=== PATIENT | male | born 1975 | race Caucasian/White ===

== ENCOUNTER → 2021-08-13 12:47 | Outpatient (BNVA) | payer OTHER, SELFPAY | PROVIDERS: PCP Internal Medicine; Visit Provider Nurse Practitioner Family ==

== ENCOUNTER → 2022-09-13 09:11 | Outpatient (BNVA) | payer OTHER, SELFPAY | PROVIDERS: PCP Internal Medicine; Visit Provider Nurse Practitioner Family | DX: Z13.89 Encounter for screening for other disorder (principal) ==

== ENCOUNTER 2023-03-15 08:04 | Outpatient (AMB) | payer OTHER, SELFPAY ==
[2023-03-15 08:07] VITALS: BP 126/88; PULSE 69; O2SAT 97; BMI 32.8
--- NOTE | 2023-03-15 08:07 | A.OFFVIS_ITS ---
Intake Vital Signs 03/15/23 08:07 Height 5 ft 11 in Weight 235 lb 8 oz BMI 32.8 BP 126/88 Blood Pressure Location Lt brachial Position Sitting Pulse 69 Pulse Source Pulse Oximeter Pulse Oximetry (%) 97 Oxygen Delivery Method Room Air Intake Visit Reasons: 6m follow up - LVM Intake Note: Pt presents as a 6 month f/u. PT states slow tremor increase on left side but everything else seems to be doing pretty well. Public Address Announcer Required: No Allergies acetaminophen [From Percocet] Allergy (Mild, Verified 03/15/23 08:11) unknown oxycodone [From Percocet] Allergy (Mild, Verified 03/15/23 08:11) unknown Seasonal Allergies Allergy (Unknown, Verified 03/15/23 08:11) Sneezing Medication List - Last Reconciled 03/15/23 by ELIZABETH Johns carbidopa-levodopa 25-100 mg 1.5 tabs PO TID 90 days cetirizine-pseudoephedrine 5-120 mg ER (Zyrtec-D) 1 tab PO DAILY PRN clonazepam 0.5 mg PO DAILY PRN desonide 0.05% appl topical DAILY gabapentin 300 mg PO DAILY ketoconazole 2% 1 appl topical levothyroxine 137 mcg PO DAILY meloxicam 15 mg PO DAILY HPI HPI Comments History of Present Illness Details 47-yr-old male presents for f/u visit. Pt denies any significant interval medical history changes. Pt's current PD medication regimen: Carbidopa-Levodopa 25-100mg 4-5 tabs per day over 3 doses. Do medication effects last between doses: Yes ADL's: Ind Orthostatic lightheadedness: Occasionally. Constipation: None Stiffness: Better w/ Meloxicam, Gabapentin, and prn shoe orthotics which is helping the toe pain/stiffness Tremor: More noticeable in the LUE but not interfering with ADLs/IADLs. Falls: None Hallucinations: may see something out of the corner of his eye. Sleep: Sleep is a bit funky . May stay up a bit later watching TV. But usually sleeps 6 hrs per night- and wakes uo refreshed. Exercise: He gets about 12,000 steps a day. Plans to be splitting wood in the fall. ? [facility] Surgical History H/O thyroidectomy History of back surgery Family History Father HTN (hypertension) Diabetes Mother Asthma Social History (Updated 09/13/22 @ 09:25 by Aysha Yeung CMA) Household Members: Spouse Household Members Other:: Alcohol intake: current Alcohol intake frequency: a few times a month Patient Tobacco Use Status: Former Tobacco user e-Cigarette/Vaping Use: Currently Using Substance Use Type: Marijuana Review of Systems Const All systems reviewed & are unremarkable except as noted in HPI and below Physical Exam Vital Signs: Last Vital Signs Pulse 69 03/15/23 08:07 BP 126/88 03/15/23 08:07 Pulse Ox 97 03/15/23 08:07 Oxygen Delivery Method Room Air 03/15/23 08:07 BMI result Body Mass Index 32.8 Const General: cooperative and no acute distress Resp Effort & Inspection: normal respiratory effort and able to speak in complete sentences Neuro Other: Expression: Intact Voice: Intact Tremor: LUE rest tremor- mild, intermittent Tone: Mild in LUE FFM: mildly decreased on left Foot taps- mildly decreased on left Gait: stands easily, good stride, steady gait General: patient oriented x3 Assessment & Plan Assessment & Plan (1) Parkinson's disease: Code(s): G20 - Parkinson's disease (2) Sleep difficulties: Code(s): G47.9 - Sleep disorder, unspecified Plan Carbidopa-Levodopa 25-100mg tid: 4-5 tabs per day. Continue Meloxicam, Gabapentin. Continue walking, encouraged adding more strenuous exercise as tolerated. Work accommodation letter recently completed. f/u in 6 months or sooner prn Coding Level of Care Code Est Pt Level 4 (37115) Diagnoses Parkinson's disease G20 Sleep difficulties G47.9
== END 2023-03-15 08:52 | disposition home or self-care (01) ==
PROVIDERS: Visit Provider Nurse Practitioner Family
DX: G20 Parkinson's disease (principal); G47.9 Sleep disorder, unspecified
CPT/HCPCS: 99214

== ENCOUNTER → 2023-03-15 08:04 | Outpatient (BNVA) | payer OTHER, SELFPAY | PROVIDERS: Visit Provider Nurse Practitioner Family ==

== ENCOUNTER 2023-09-13 12:45 | Outpatient (AMB) | payer OTHER, SELFPAY ==
[2023-09-13 12:57] VITALS: BP 124/88; PULSE 62; O2SAT 98; BMI 32.4
--- NOTE | 2023-09-13 12:57 | A.OFFVIS_ITS ---
Intake Vital Signs 09/13/23 12:57 Height 5 ft 11 in Weight 232 lb BMI 32.4 BP 124/88 Blood Pressure Location Rt brachial Pulse 62 Pulse Source Pulse Oximeter Pulse Oximetry (%) 98 Oxygen Delivery Method Room Air Intake Visit Reasons: 6m follow up-LVM Intake Note: Patient presents for 6 month follow up. Relatively the same, tremor on left side increasing steadily Allergies acetaminophen [From Percocet] Allergy (Mild, Verified 09/13/23 13:00) unknown oxycodone [From Percocet] Allergy (Mild, Verified 09/13/23 13:00) unknown Seasonal Allergies Allergy (Unknown, Verified 09/13/23 13:00) Sneezing Medication List - Last Reconciled 09/13/23 by ELIZABETH Johns carbidopa-levodopa 25-100 mg 1.5 tabs PO TID 90 days cetirizine-pseudoephedrine 5-120 mg ER (Zyrtec-D) 1 tab PO DAILY PRN clonazepam 0.5 mg PO DAILY PRN desonide 0.05% appl topical DAILY gabapentin 300 mg PO DAILY ketoconazole 2% 1 appl topical levothyroxine 137 mcg PO DAILY meloxicam 15 mg PO DAILY HPI HPI Comments History of Present Illness Details 48-yr-old male presents for f/u visit. Pt denies any significant interval medical history changes. However, he recently lost his brother unexpectedly. Pt's current PD medication regimen: Carbidopa-Levodopa 25-100mg 4 tabs one day alternating w/ 5 tabs the other day (his current supply is not scored and do not split easily). Do medication effects last between doses: Yes Overall Parkinson's is alright , but is noting more LUE tremor and LLE calf spasms. He has been noticing bilateral slow steady buzzing tinnitus- notices most at end of day when winding down and watching TV. He has noticed some difficulty hearing other people speak in crowded setting. ADL's: Ind Fine motor skilss: some more difficulty opening up a bag of chips or opening up a ziplock bag. Orthostatic lightheadedness: None recently. Constipation: None Stiffness: More so in certified medical assistant or sits down for a while. The orthotic ended up causing more pain- wearing stiffer shoes seems to help. Tremor: More noticeable in the LUE but not interfering with ADLs/IADLs. Falls: None. Gait: Can be a bit off-balance, more so when standing on his left foot. Tries to do activities to work on his balance. Hallucinations: may see something flashing out of the corner of his eye. Sleep: Sleep has been steady- at least 6 hrs. May stay up a bit later watching TV. But usually sleeps 6 hrs per night- and wakes uo refreshed. Memory: STM is good- but may lose track of what he was doing. Tries to pay attention when word choosing. LTM- not clearly vivid. Mood: Good- feels his emotions are appropriate. Exercise: He gets about 12,000 steps a day. Hoping to be able to take hikes as the weather becomes warmer. ? [facility] Medical History (Updated 10/01/23 @ 21:07 by ELIZABETH Johns) Parkinson's disease Surgical History H/O thyroidectomy History of back surgery Family History Father HTN (hypertension) Diabetes Mother Asthma Social History Household Members: Spouse Household Members Other:: Alcohol intake: current Alcohol intake frequency: a few times a month Patient Tobacco Use Status: Former Tobacco user e-Cigarette/Vaping Use: Currently Using Substance Use Type: Marijuana Review of Systems Const All systems reviewed & are unremarkable except as noted in HPI and below Physical Exam Vital Signs: Last Vital Signs Pulse 62 09/13/23 12:57 BP 124/88 09/13/23 12:57 Pulse Ox 98 09/13/23 12:57 Oxygen Delivery Method Room Air 09/13/23 12:57 BMI result Body Mass Index 32.4 Const General: cooperative and no acute distress Resp Effort & Inspection: normal respiratory effort and able to speak in complete sentences Neuro Other: General: A&O x's 3 Expression: Intact Voice: Intact Tremor: LUE rest tremor- mild, intermittent Tone: Mild in LUE FFM: Mildly decreased on left Foot taps- Mildly decreased on left Gait: stands easily, good stride, steady gait Assessment & Plan Assessment & Plan (1) Parkinson's disease without dyskinesia: Code(s): G20.A1 - Parkinson's disease without dyskinesia, without mention of fluctuations (2) Muscle spasm: Code(s): M62.838 - Other muscle spasm (3) Tinnitus: Code(s): H93.19 - Tinnitus, unspecified ear Plan Adjust Carbidopa-Levodopa 25-100mg from 4 tabs per day alt w/ 5 tabs per day to 2 tabs TID. Continue Meloxicam, Gabapentin. Continue walking and exercise as tolerated. Consider audiology/ENT eval. f/u in 6 months or sooner prn Medications: Changed From carbidopa-levodopa 25-100 mg 1.5 tabs PO TID 90 days 405 tabs 2RF To carbidopa-levodopa 25-100 mg 2 tabs PO TID 540 tabs 2RF 90 days Coding Level of Care Code Est Pt Level 4 (84247) Diagnoses Parkinson's disease without dyskinesia G20.A1 Muscle spasm M62.838 Tinnitus H93.19
== END 2023-09-13 14:01 | disposition home or self-care (01) ==
LOC: HO.HSMS 12:46
PROVIDERS: PCP Internal Medicine; Visit Provider Nurse Practitioner Family
DX: G20.A1 Parkinson's disease without dyskinesia, without mention of fluctuations (principal); M62.838 Other muscle spasm; H93.19 Tinnitus, unspecified ear
CPT/HCPCS: 99214

== ENCOUNTER → 2023-09-13 12:45 | Outpatient (BNVA) | payer OTHER, SELFPAY | PROVIDERS: PCP Internal Medicine; Visit Provider Nurse Practitioner Family ==

== ENCOUNTER 2024-03-15 12:43 | Outpatient (AMB) | payer OTHER, SELFPAY ==
--- NOTE | 2024-03-15 12:50 | MHC.OFFVIS ---
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 Pt denies any significant interval medical history changes. His recent TSH level was elevated and his levothyroxine dose was decreased. Pt's current PD medication regimen: Carbidopa-Levodopa 25-100mg 2-2-1 tabs. Do medication effects last between doses: Yes He has not been taking Gabapentin in the last few months. Overall Parkinson's is stable, however noticing increased LUE tremor which can be bothersome, especially as he typically eats left handed. Tremor does note seem to be affected by his CD-LD dose. ADL's: Ind Fine motor skills: as above. Swallowing issues: denies: Drooling: denies Orthostatic lightheadedness: Occasional brief orthostatic lightheadedness- if he gets up to quick. Constipation: None Urinary symptoms: no issues Stiffness: Varies throughout the day- he thinks this may be due to recently moving. Crampings/Spasms: LLE spasms- can be tiring. Tremor: as above Falls: None. Gait: Not as off-balance- may be more off-balance if standing on one leg while getting dressed. Hallucinations: none Sleep: Sleep is still not great- at worst 2 hrs, typically 5.5-6hrs, at best 6.5-7 hrs. Feels like he cannot maintain good quality sleep. Uses prn Clonopin at times. Does also try bineural beats or mindful meditation. He recently got a new bed. He does have a h/o very mild RHYS. Does still snore. Memory: STM is good- but may lose track of what he was doing. Tries to pay attention when word choosing. LTM- not clearly vivid. Mood: Pretty good. Exercise: He gets about 12,000 steps a day. [facility] Medical History Parkinson's disease Surgical History H/O thyroidectomy History of back surgery Family History Father HTN (hypertension) Diabetes Mother Asthma Social History Household Members: Spouse Household Members Other:: Alcohol intake: current Alcohol intake frequency: a few times a month Patient Tobacco Use Status: Former Tobacco user e-Cigarette/Vaping Use: Currently Using Substance Use Type: Marijuana Review of Systems Const All systems reviewed & are unremarkable except as noted in HPI and below Physical Exam Vital Signs: Last Vital Signs Pulse 58 03/15/24 12:51 BP 122/8 L 03/15/24 12:51 Pulse Ox 97 03/15/24 12:51 Oxygen Delivery Method Room Air 03/15/24 12:51 BMI result Body Mass Index 31.4 Const General: cooperative and no acute distress Resp Effort & Inspection: normal respiratory effort and able to speak in complete sentences Neuro Other: General: A&O x's 3 Expression: Intact Voice: Intact Tremor: LUE rest and postural tremor- mild, intermittent Tone: Mild in LUE Dyskinesia: None FFM: Mildly decreased on left Foot taps- Mildly decreased on left Gait: stands easily, good stride, steady gait Psych: Pleasant affect Assessment & Plan Assessment & Plan (1) Parkinson's disease without dyskinesia: Code(s): G20.A1 - Parkinson's disease without dyskinesia, without mention of fluctuations Category: Medical (2) Sleep difficulties: Code(s): G47.9 - Sleep disorder, unspecified Category: Medical (3) Muscle spasm: Code(s): M62.838 - Other muscle spasm Category: Medical Plan Continue Carbidopa-Levodopa 25-100mg 2-2-1 per day, may increase up to 6 tabs per day Monitor tremor- may be exacerbated by recent hyperthyroid status. Pt has stopped Gabapentin and Meloxicam Continue walking and exercise as tolerated. Consider audiology/ENT eval. Future considerations- Amantadine for remor. f/u in 6 months or sooner prn Coding Level of Care Code Est Pt Level 4 (11527) Diagnoses Parkinson's disease without dyskinesia G20.A1 Sleep difficulties G47.9 Muscle spasm M62.838
[2024-03-15 12:51] VITALS: BP 122/8; PULSE 58; O2SAT 97; BMI 31.4
== END 2024-03-15 14:17 | disposition home or self-care (01) ==
PROVIDERS: PCP Internal Medicine; Visit Provider Nurse Practitioner Family
DX: G20.A1 Parkinson's disease without dyskinesia, without mention of fluctuations (principal); G47.9 Sleep disorder, unspecified; M62.838 Other muscle spasm
CPT/HCPCS: 99214

== ENCOUNTER → 2024-03-15 12:43 | Outpatient (BNVA) | payer OTHER, SELFPAY | PROVIDERS: PCP Internal Medicine; Visit Provider Nurse Practitioner Family ==

== ENCOUNTER 2024-09-27 14:19 | Outpatient (AMB) | payer OTHER, SELFPAY ==
[2024-09-27 14:30] VITALS: BP 120/82; PULSE 84; O2SAT 97; BMI 30.7
--- NOTE | 2024-09-27 14:30 | A.OFFVIS_ITS ---
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 He reports lightheadedness, particularly noticeable upon standing, symptoms appeared more once blood pressure medication commenced. Muscle spasms in the left leg and morning stiffness. No reported constipation, urinary issues, or falls. Reports maintaining adequate hydration; he modestly reduced salt intake without impacting medication efficacy. The patient details that sleep averages under six hours. Memory is occasionally challenged, requiring reminders, although no significant cognitive decline reported. Routine currently limited to dog walks, with future plans for weight/ strength training exercise integration at home. No current hallucinations; manages muscular aches through medical marijuana. Work performance is unaffected, and feedback remains positive. Medications - Carbidopa/Levodopa for Parkinson's Disease - Lisinopril for Essential Hypertension - Medical Marijuana for pain management and sleep assistance Physical Exam Pt's current PD medication regimen: Carbidopa levodopa 25- 100 mg tab, 2 tabs orally 3 times a day Activities of daily living (ADL's): Independent Instrumental activities of daily living (IADL's): Independent Swallowing difficulty: Denies Cough: Denies Drooling: Denies Orthostatic lightheadedness: Reports lightheadedness when standing up, especially towards the end of the day Constipation: Denies Urinary symptoms: Denies Tremor: Present, biggest nuisance currently Dyskinesia: None Stiffness: Reports stiffness in the mornings, usually for about an hour. Reports reduced synchrony in left hand finger exercises, Musculoskeletal symptoms: Occasional spasms in the left leg Gait difficulties or changes: Reports balance difficulties, especially when putting on socks. Mobility limitations are noted regarding balance, particularly when putting on socks. Reports that leveraging techniques like sitting for balance tasks is employed. Freezing episodes of gait: Denies Falls: Denies, but reports a couple of close calls Mood difficulties or changes: Stable, good and healthy Hallucinations: Denies Memory difficulties or changes: Reports some difficulty, uses grocery lists more often Sleep difficulties: Reports sleeping just under six hours a night on average Exercise routine: Limited, mostly walking the dog Socialization and cognitive activities: continues to work remotely, but spends most of time at home. ON LICENSE OF [facility] Medical History Parkinson's disease Surgical History H/O thyroidectomy History of back surgery Family History Father HTN (hypertension) Diabetes Mother Asthma Social History Household Members: Spouse Household Members Other:: Alcohol intake: current Alcohol intake frequency: a few times a month Patient Tobacco Use Status: Former Tobacco user e-Cigarette/Vaping Use: Currently Using Substance Use Type: Marijuana Physical Exam Vital Signs: Last Vital Signs Pulse 84 09/27/24 14:30 BP 120/82 09/27/24 14:30 Pulse Ox 97 09/27/24 14:30 Oxygen Delivery Method Room Air 09/27/24 14:30 BMI result Body Mass Index 30.7 Const General: cooperative and no acute distress Resp Effort & Inspection: normal respiratory effort and able to speak in complete sentences Neuro Other: General: A&O x's 3 Expression: Intact Voice: Intact Tremor: LUE rest and postural tremor- mild, intermittent Tone: Mild in LUE Dyskinesia: None FFM: Mildly decreased on left Foot taps- Mildly decreased on left Gait: Stands easily, good stride, steady gait Psych: Pleasant affect Assessment & Plan Assessment & Plan (1) Parkinson's disease without dyskinesia: Code(s): G20.A1 - Parkinson's disease without dyskinesia, without mention of fluctuations Category: Medical (2) Sleep difficulties: Code(s): G47.9 - Sleep disorder, unspecified Category: Medical (3) Muscle spasm: Code(s): M62.838 - Other muscle spasm Category: Medical (4) Essential hypertension: Code(s): I10 - Essential (primary) hypertension Category: Medical Plan Discussion Notes During this visit, I reviewed the patient's management for Parkinson's Disease setting of hypertension, and his reports about lightheadedness likely worsened by medications. We discussed the consideration of alternating hydration tactics incorporating electrolyte solutions to counteract orthostatic symptoms and discussed about taking salt moderately (as fully abstaining can increase risk for OH). Acknowledgment of exercise's positive impacts on mood and disease progression was shared. I reaffirmed the significance of weight training integration into his daily regimen for functional and cognitive benefits. Follow-up plans and adjustments involve monitoring lightheadedness, with consideration for medication modifications if needed. I validated the approach of maintaining consistency in his current management plan while supporting cognitive health through routine exercises. Patient was informed and verbally consented to the use of an ambient scribe for clinic note documentation during this visit. Plan and Patient Instructions Continue Carbidopa-Levodopa 25-100mg- 2 tabs 3 times per day May continue medical marijuana Consider electrolyte drinks to maintain hydration and mitigate lightheadedness. Utilize salt cautiously in the diet and ensure balanced intake. Concur with increasing regular physical activity including walking and strength training. Report persistent symptoms of lightheadedness or any new concerns promptly. Future considerations- Amantadine or Cogentin for tremor. Patient to follow-up in 6 months or sooner prn. Coding Level of Care Code Est Pt Level 4 (35382) Complex EM visit Add On G2211 Diagnoses Parkinson's disease without dyskinesia G20.A1 Sleep difficulties G47.9 Muscle spasm M62.838 Essential hypertension I10
--- OUTSIDE RECORDS SUMMARY | 2024-09-27 18:01 | XMS_ITS | Patient Health Record ---
Author Organization [facility] Address [address] [address] Care Team Providers Care Audio Production Instructor Name Role Phone Thuy Cummings Primary Care Provider Gabby vailable Allergies Allergen (clinical drug ingredient) Drug/Non Drug Allergy documented on EMR Reaction Allergy Type Onset Date Status acetaminophen / oxycodone Percocet anxiety Drug Allergy Active Reason For Referral No Information Medications Medication SIG (Take, Route, Frequency, Duration) Notes Start Date End Date Status Gabapentin 300 MG TAKE 1 CAPSULE BY [facility] EVERY DAY for 30 Active clonazePAM 0.5 MG 1 tablet at bedtime Orally Once a day Active Carbidopa-Levodopa 25-100 MG 1 tablet as needed Orally Three times a day Active Levothyroxine Sodium 137 MCG 1 tablet in the morning on an empty stomach Orally Once a day Active Ibuprofen Active ZyrTEC Allergy 10 MG 1 tablet Orally Onc e a day Active Diclofenac Sodium 1 % 1 gm as directed Externally three times a day for 30 days 07/16/2022 Active Tylenol 325 MG 2 capsules as needed Orally every 4 hrs Active Meloxicam 15 MG 1 tablet Orally Once a day Active Problems Problem Type SNOMED Code ICD Code Onset Dates Problem Status W/U Status Risk Notes Problem [id number] Hallux rigidus, right foot (M20.21) Active confirmed Problem [id number] Hallux rigidus, left foot (M20.22) Active confirmed Problem [id number] Parkinson disease (G20) Active confirmed Problem [id number] Metatarsus adductus of left foot (Q66.222) Active confirmed Problem [id number] Metatarsus adductus of right foot (Q66.221) Active confirmed Plan Of Treatment Pending Test Test Name Order Date X ray : Foot, left 3v 07/16/2022 X ray : Foot, right 3v 07/16/2022 Insurance Providers Payer Name Payer Address Payer Phone Subscriber Number Group Number Insured Name Patient Relationship to Insured Coverage Start Date Coverage End Date [employer] [address] [place] [phone] [id number] Urbano Moser Self - patient is the insured Medical (General) History Medical History History ICD Code history of thyroid cancer hypothyroidism insomnia low serum vitamin D obesity Parkinson disease sleep apnea bilateral arthralgia of multiple sites myalgia papillary thyroid carcinoma + COVID 01/2022 COVID vaccinated X 2 ([employer]) and 2 cristian ters ([employer]) athletes foot osteoarthritis grade 3 ankle sprain Surgical History Surgery Date(Month/Year) total thyroidectomy 12/12/2020 hydrocele ganglion cyst microdiscectomy L5-S1 02/2008 Hospitalization History Reason Date(Month/Year) total thyroidectomy 12/12/2020 microdiscectomy L5-S1 02/2008
--- OUTSIDE RECORDS SUMMARY | 2024-09-27 18:01 | XMS_ITS | Clinical Summary ---
Author Organization [facility] [employer] [facility] lin Address [address] [facility] [place] [address] Care Team Providers Care Centerless Grinder Name Role Phone No, Pcp LIQUOR TESTER Primary Care Provider Unavailabl e Social History Tobacco Use Types Packs/Day Years Used Date Smoking Tobacco: Never Assessed Sex and Gender Information Value Date Recorded Sex Assigned at Male 03/08/2021 6:45 PM EDT Legal Sex Male 8:30 AM EST Gender Identity Male 03/08/2021 6:45 PM EDT Sexual Orientation Straight 03/08/2021 6: 45 PM EDT Plan of Treatment Health Maintenance Due Date Last Done Comments Colorectal Cancer: COLONOSCO PY Screening every 10 yrs (or Modifier) 1977 Depression: Screening Annual ly using PHQ-2/9 in Adults 18 yrs or above (or HM Modifier)([facility]) 1995 Hepatitis C Virus Infection in Adolescents and Adults: Screening (or Modifier) ([facility]) 1995 SDVT Screening Reminder: Enriqueta arrieta for all adults ([facility]) 1995 Tobacco Smoking Cessation: i n Adults excluding Women: Behavioral and Pharmacotherapy Interventions ([facility]) 1995 DTaP/Tdap/Td Vaccines ([facility]) (1 - Tdap) 1996 Lipid Screening: Every 5 yrs for Men aged 35+ (or HM Modifier) ([facility]) 2013 Colorectal Cancer Screening 45 -75 Yrs (or HM Modifier) 2022 Colorectal Cancer: FLEXIBLE SIGMOIDOSCOPY Screening every 5 yrs 2022 Colorectal Cancer: Fecal Immunochemical Test (FIT) Annually [facility] 2022 Colorectal Cancer: High-sens itivity gFOBT Screening Annually [facility] 2022 Colorectal Cancer: Stool Col oguard Screening every 3 yrs 2022 Colorectal Cancer:CT Colonog alejandro Screening every 5 yrs 2022 Flu Vaccination: Yearly for ages 18mos through 64 years (or Modifier)([facility]) 02/02/2024 COVID-19 Vaccine Screening: Initial Series and Booster Status ([facility]) (2023- season) 2024 Zoster/Shingles Vaccine Seri es Screening: Adults aged 18+ yrs (or HM Modifiers)([facility]) (1 of 2) 2027 Pneumococcal Vaccination Scr eening: Pts 0-19 & 19-49 yrs of age ([facility]) Aged Out No longer eligible based on patient's age to complete this topic Medical Devices Not on file Care Teams Centerless Grinder Relationship Specialty Start Date End Date No, Pcp, LIQUOR TESTER N/A Do not use PCP - General Family Medicine 06/12/20
== END 2024-09-27 15:41 | disposition home or self-care (01) ==
LOC: HO.HSMS 14:20
PROVIDERS: PCP Internal Medicine; Visit Provider Nurse Practitioner Family
DX: G20.A1 Parkinson's disease without dyskinesia, without mention of fluctuations (principal); G47.9 Sleep disorder, unspecified; M62.838 Other muscle spasm; I10 Essential (primary) hypertension
CPT/HCPCS: 99214; G2211

== ENCOUNTER 2025-04-05 09:52 | Outpatient (AMB) | payer OTHER, SELFPAY ==
[2025-04-05 10:11] VITALS: BP 130/80; PULSE 59; O2SAT 97; BMI 32.2
--- NOTE | 2025-04-05 10:11 | MHC.OFFVIS ---
Vital Signs 04/05/25 10:11 Height 5 ft 11 in Weight 231 lb BMI 32.2 BP 130/80 Blood Pressure Location Rt brachial Position Sitting Pulse 59 Pulse Source Pulse Oximeter Pulse Oximetry (%) 97 Oxygen Delivery Method Room Air Intake Visit Reasons: 6 mo follow up Intake Note: Patient presents follow up Parkinson's/Sleep Licensed Occupational Therapist Required: No Accompanied by: Self / Same As Patient Allergies acetaminophen (From Percocet) Allergy (Mild, Verified 04/05/25 10:14) unknown oxycodone (From Percocet) Allergy (Mild, Verified 04/05/25 10:14) unknown Seasonal Allergies Allergy (Unknown, Verified 04/05/25 10:14) Sneezing Medication List - Last Reconciled 04/05/25 by ELIZABETH Johns carbidopa-levodopa 25-100 mg 2 tabs PO TID 90 days cetirizine-pseudoephedrine 5-120 mg ER (Zyrtec-D) 1 tab PO DAILY PRN clonazepam 0.5 mg PO DAILY PRN levothyroxine 137 mcg PO DAILY lisinopril 20 mg PO DAILY HPI Comments Details: 49-year-old male presenting for follow-up of Parkinson's Disease. He reports some episodes of early wearing off 2 hours before the next dose where he notices increased tremors. Thus, for a couple of days he took an extra dose of 2 tabs of CD-LD w/o adverse effect. He has noticed that he has not been sleeping as well, but he notes that he recently came back from his annual work trip to [place]. Pt's current PD medication regimen: Carbidopa levodopa 25- 100 mg tab, 2 tabs orally 3 times a day, however at times has taken 2 tabs 4 times a day as above Activities of daily living (ADL's): Independent Instrumental activities of daily living (IADL's): Independent Swallowing difficulty: Rare issue if he eats something to dry Cough: Denies Drooling: Denies Orthostatic lightheadedness: Occasional lightheadedness when standing up quickly- so stands slowly Constipation: Denies Urinary symptoms: Denies Tremor: Present, biggest nuisance currently Dyskinesia: None Stiffness: Reports stable stiffness Musculoskeletal symptoms: Occasional spasms in the left leg Gait difficulties or changes: No difficulties when walking. More off-balance if standing while getting dressed. Freezing episodes of gait: Denies Falls: Denies Mood difficulties or changes: Stable, good and healthy Hallucinations: Denies Memory difficulties or changes: Reports overall good, but occasional stumbling on word recall Sleep difficulties: as above Exercise routine: Has not started Bautista-Bogdan yet. Walking around the yard with dog. Not exercising as much as his back has been a bit sore, has a h/o back surgery. Socialization and cognitive activities: continues to work remotely, but spends most of time at home. [facility] Medical History Parkinson's disease Surgical History H/O thyroidectomy History of back surgery Family History Father HTN (hypertension) Diabetes Mother Asthma Social History Household Members: Spouse Household Members Other:: Alcohol intake: current Alcohol intake frequency: a few times a month Patient Tobacco Use Status: Former Tobacco user e-Cigarette/Vaping Use: Currently Using Substance Use Type: Marijuana Physical Exam Vital Signs: Last Vital Signs Pulse 59 04/05/25 10:11 BP 130/80 04/05/25 10:11 Pulse Ox 97 04/05/25 10:11 Oxygen Delivery Method Room Air 04/05/25 10:11 BMI result Body Mass Index 32.2 Const General: cooperative and no acute distress Resp Effort & Inspection: normal respiratory effort and able to speak in complete sentences Neuro Other: General: A&O x's 3 Expression: Intact Voice: Intact Tremor: LUE postural tremor- mild Tone: Mild in LUE Dyskinesia: None FFM: Mildly decreased on left Foot taps- Mildly decreased on left Gait: Stands easily, slight decreased left arm swing and LLE stride, with overall steady gait Psych: Pleasant affect Assessment & Plan Assessment & Plan (1) Parkinson's disease without dyskinesia: Code(s): G20.A1 - Parkinson's disease without dyskinesia, without mention of fluctuations Category: Medical Qualifiers: Fluctuating manifestations: without fluctuating manifestations Qualified Code(s): G20.A1 - Parkinson's disease without dyskinesia, without mention of fluctuations (2) Sleep difficulties: Code(s): G47.9 - Sleep disorder, unspecified Category: Medical (3) Muscle spasm: Code(s): M62.838 - Other muscle spasm Category: Medical (4) Essential hypertension: Code(s): I10 - Essential (primary) hypertension Category: Medical Plan Continue Carbidopa-Levodopa 25-100mg- 2 tabs 3 times per day, may take an extra 2 tabs per day as needed for wearing off May continue medical marijuana Try to take at least 64-84 oz of fluid per day, including electrolyte drinks to maintain hydration and mitigate lightheadedness. Encouraged to engage in regular physical activity including walking, balance exercises, and strength training. Report any new concerns promptly. Future considerations- Amantadine or Cogentin for tremor. Patient to follow-up in 6 months or sooner prn. Medications: Changed From carbidopa-levodopa 25-100 mg 2 tabs PO TID 90 days 540 tabs 2RF To carbidopa-levodopa 25-100 mg 2 tabs PO QID 720 tabs 2RF 90 days Coding Level of Care Code Est Pt Level 4 (54356) Diagnoses Parkinson's disease without dyskinesia or fluctuating manifestations G20.A1 Fluctuating manifestations: without fluctuating manifestations Sleep difficulties G47.9 Muscle spasm M62.838 Essential hypertension I10
--- OUTSIDE RECORDS SUMMARY | 2025-04-05 10:34 | XMS_ITS | Clinical Summary ---
Author Organization [facility] [employer] [facility] lin Address [address] [facility] [place] [address] Care Team Providers Care Fire Protection Engineering Technician Name Role Phone No, Pcp RAIL CAR MECHANIC Primary Care Provider Unavailabl e Social History [...] Adults 18 yrs or above (or HM Modifier)([facility]) 1995 Hepatitis C Virus Infection in Adolescents and Adults: Screening (or Modifier) ([facility]) 1995 SDNY Screening Reminder: Enriqueta arrieta for all adults ([facility]) 1995 Tobacco Smoking Cessation: i n Adults excluding Women: Behavioral and Pharmacotherapy Interventions ([facility]) 1995 DTaP/Tdap/Td Vaccines ([facility]) (1 - Tdap) 1996 Colorectal Cancer Screening 45 -75 Yrs (or HM Modifier) 2022 Colorectal Cancer: FLEXIBLE SIGMOIDOSCOPY Screening every 5 yrs 2022 Colorectal Cancer: Fecal Immunochemical Test (FIT) Annually [facility] 2022 Colorectal Cancer: High-sens itivity gFOBT Screening Annually [facility] 2022 Colorectal Cancer: Stool Col oguard Screening every 3 yrs 2022 Colorectal Cancer:CT Colonog alejandro Screening every 5 yrs 2022 Flu Vaccination: Yearly for ages 18mos through 64 years (or Modifier)([facility]) 02/01/2025 COVID-19 Vaccine Screening: Initial Series and Booster Status ([facility]) ( - 2023- season) 2025 Zoster/Shingles Vaccine Seri es Screening: Adults aged 18+ yrs (or HM Modifiers)([facility]) (1 of 2) 2027 Pneumococcal Vaccination Scr eening: Pts 0-19 & 19-49 yrs of age ([facility]) Aged Out No longer eligible based on patient's age to complete this topic Medical Devices Not on file Care Teams Fire Protection Engineering Technician Relationship Specialty Start Date End Date No, Pcp, RAIL CAR MECHANIC N/A Do not use PCP - General Family Medicine 06/12/20
--- OUTSIDE RECORDS SUMMARY | 2025-04-05 10:34 | XMS_ITS | Patient Health Record ---
Author Organization [facility] Address [address] [address] Care Team Providers Care Senior Integration Developer Name Role Phone Thuy Cummings Primary Care Provider Gabby vailable Allergies Allergen (clinical drug ingredient) Drug/Non Drug Allergy documented on EMR Reaction Allergy Type Onset Date Status acetaminophen / oxycodone Percocet anxiety Drug Allergy Active Reason For Referral No Information Medications Medication SIG (Take, Route, Frequency, Duration) Notes Start Date End Date Status Gabapentin 300 MG TAKE 1 CAPSULE BY [facility] EVERY DAY; Duration: 30 Active clonazePAM 0.5 MG 1 tablet [...] gm as directed Externally three times a day; Duration: 30 days 07/16/2022 Active Tylenol 325 MG 2 capsules as needed Orally every 4 hrs Active Meloxicam 15 MG 1 tablet Orally Once a day Active Problems Problem Type SNOMED Code ICD Code Onset Dates Problem Status W/U Status Risk Notes Problem Acquired hallux rigidus (8779342) Hallux rigidus, right foot (M20.21) Active confirmed Problem Acquired hallux rigidus (4246253) Hallux rigidus, left foot (M20.22) Active confirmed Problem Parkinson disease (91050260) Parkinson disease (G20) Active confirmed Problem Left metatarsus adductus (disorder) (70237738021717 103) Metatarsus adductus of left foot (Q66.222) Active confirmed Problem Right metatarsus adductus (disorder) (82316475344638 106) Metatarsus adductus of right foot (Q66.221) Active confirmed Plan Of Treatment Pending Test Test Name Order Date X ray : Foot, left 3v 07/16/2022 X ray : Foot, right 3v 07/16/2022 Insurance Providers Payer Name Payer Address Payer Phone Subscriber Number Group Number Insured Name Patient Relationship to Insured Coverage Start Date Coverage End Date [employer] [address] [place] [phone] [id number] Urbano Moser Self - patient is the insured Medical (General) History Medical History History ICD Code history of thyroid cancer hypothyroidism insomnia low serum vitamin D obesity Parkinson disease sleep apnea bilateral arthralgia of multiple sites myalgia papillary thyroid carcinoma + COVID 01/2022 COVID vaccinated X 2 ([facility]) and 2 cristian ters ([facility]) athletes foot osteoarthritis grade 3 ankle sprain Surgical History Surgery Date(Month/Year) total thyroidectomy 12/12/2020 hydrocele ganglion cyst microdiscectomy L5-S1 02/2008 Hospitalization History Reason Date(Month/Year) total thyroidectomy 12/12/2020 microdiscectomy L5-S1 02/2008
== END 2025-04-05 11:23 | disposition home or self-care (01) ==
LOC: HO.HSMS 09:53
PROVIDERS: PCP Internal Medicine; Visit Provider Nurse Practitioner Family
DX: G20.A1 Parkinson's disease without dyskinesia, without mention of fluctuations (principal); G47.9 Sleep disorder, unspecified; M62.838 Other muscle spasm; I10 Essential (primary) hypertension
CPT/HCPCS: 99214